=== PATIENT | female | born 2005 | race Caucasian/White ===

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

== ENCOUNTER 2025-01-24 14:33 | Outpatient (CLI) | payer OTHER, SELFPAY ==
--- OUTSIDE RECORDS SUMMARY | 2025-01-24 14:39 | XMS_ITS | Clinical Summary ---
Author Organization [facility] Address [address] [place] [address] Care Team Providers Care Costume Shop Manager Name Role Phone Trevon Hazel MD Primary Care Provider [phone] Allergies No known active allergies Medications acetaminophen (TYLENOL) 500 MG tabletIndicatio ns:Acute Pain < 7 Day Supply Take 2 tablets (1,000 mg total) by mouth every 6 (six) hours as needed for Pain. Indications: Acute Pain < 7 Day Supply 40 tablet 10/18/2024 Active ibuprofen (MOTRIN) 200 MG tablet Take 1 tablet (200 mg total) by mouth every 6 (six) hours as needed for Pain. Active enoxaparin (LOVENOX) 60 MG/0.6ML Solution Prefilled Syringe Inject 0.6 mLs (60 mg total) into the skin every 12 (twelve) hours. 108 mL 11/22/2024 Active Active Problems Problem Noted Date Diagnosed Date Deep vein thrombosis ([facility]) DVT (deep venous thrombosis) ([facility]) 0 11/21/2024 ([facility]) 10/13/2024 Encounters Date Type Department Care Team Description 01/03/2025 1:35 PM CDT - 01/03/2025 11:59 PM CDT Hospital Encounter [facility] [address] [place] [address] Desi Aguirre MD Discharge Disposition: Home or Self Care (Routine Discharge) 01/03/2025 Travel 11/26/2024 Hospital Follow-up Call [facility] [address] [place] [address] Ara Patricio RN 11/21/2024 3:12 PM CDT - 11/24/2024 3:45 PM CDT Hospital Encounter [facility] [address] [place] [address] Brigid Gonzales MD Maharjan, Sajana, MD Mahmoud, Anas, MD (DVT) Discharge Disposition: Home or Self Care (Routine Discharge) 11/21/2024 Travel from Last 3 Months Social History Tobacco Use Types Packs/Day Years Used Date Smoking Tobacco: Never Smokeless Tobacco: Never Tobacco Cessation:Counseling Given: Not Answered B1300 Health Literacy Answer Date Recor ded How often do you need to hav e someone help you when you read instructions, pamphlets, or other written material from your doctor or pharmacy? Never 10/13/2024 Personally Utilities Answer Date Recorded In the past 12 months has e [employer], gas, oil, or water [employer] threatened to shut off services in your [...] often do you attend chur ch or presybeterian services? Never 10/13/2024 Do you belong to any clubs o r organizations such as episcopal groups, unions, fraternal or athletic groups, or [...] care, and heating? Not very hard 10/13/2024 [facility] - [...] any time in the past 12 m [facility], were you homeless or living in a jail (including now)? No 10/13/2024 Depression Answer Date [...] 11/22/2024 11:32 PM CDT Plan of Treatment Upcoming Encounters Date Type Department Care Team (Late st Contact Info) Description 07/04/2025 1:00 PM ELECTRICAL LINE MECHANIC Appointment [facility] [place] [address] [place] [address] Desi Aguirre MD [address] [place] [address] Health Maintenance Due Date Last Done Comments Annual Physical 2008 Meningococcal B Vaccine (1 of 2 - Standard) 2021 Chlamydia Screening Females ages 16-24 07/17/2024 07/18/2023 COVID-19 Vaccine ( - 2023- season) 2025 DTaP, Tdap and Td Vaccines (7 - [...] Procedure Name Priority Date/Time Associated Diagnosis Comments USV AORTA ILIAC IVC DUPLEX COMP Routine 01/03/2025 2:24 PM CDT Phlebitis of left iliac vein (CMS/HCC HHS/HCC) FOLIC ACID SERUM Routine 11/24/2024 6:02 AM [...] EXT LT STAT 11/21/2024 4:33 PM CDT HEPATITIS C ANTIBODY Routine 03/21/2024 from Last 3 Months or Most Recently Relevant to Health Maintenance Results * USV AORTA ILIAC IVC DUPLEX COMP (01/03/2025 2:24 PM CDT) Anatomical Region Laterality Modality NA Ultrasound 01/03/2025 2:04 PM CDT Narrative 01/08/2025 2:29 PM CDT [facility] PVI DUPLEX SCAN-IVC & ILIAC VEINS Pat.Name: MEENAKSHI POLANCO Pat.ID: [id number] .Date: 01/03/2025 Refer.MD: DESI AGUIRRE Exam Time: 2:04:00 PM Study Type:PVI DUPLEX SCAN-IVC & ILIAC VEINS Age: 12 2005,19Y Sex: F Sonogrphr: MARILEE Sosa Pat. Stat.:Outpatient ICD - 9: I82.499 Acute embolism & thrombosis (DVT) of other specified deep vein of unspecified lower extremity CPT - 4: 46986 Aorta/IVC Duplex Reason for Study:DVT Race: W ++++++++++++++++++++++++++++++++++++ FINDINGS: ++++++++++++++++++++++++++++++++++++ Internal VC: The IVC demonstrates phasic flow with no evidence of venous thrombosis. Rt Iliac V: The iliac veins are patent with no evidence of venous thrombosis noted. Lt Iliac V: Total occlusion of the proximal to distal external iliac vein suggesting age indeterminate venous thrombosis. Partial occlusion of the common femoral vein suggesting age indeterminate venous thrombosis. <Electronic Signature> 01/08/2025 02:29 PM Yusef Griffith M.D. Procedure Note Yusef Griffith MD - 01/08/2025 [facility] PVI DUPLEX SCAN-IVC & ILIAC VEINS Pat.Name: MEENAKSHI POLANCO Pat.ID: [id number] .Date: 01/03/2025 Refer.MD: DESI AGUIRRE Exam Time: 2:04:00 PM Study Type:PVI DUPLEX SCAN-IVC & ILIAC VEINS Age: 12 2005,19Y Sex: F Sonogrphr: MARILEE Sosa Pat. Stat.:Outpatient ICD - 9: I82.499 Acute embolism & thrombosis (DVT) of other specified deep vein of unspecified lower extremity CPT - 4: 10732 Aorta/IVC Duplex Reason for Study:DVT Race: W ++++++++++++++++++++++++++++++++++++ FINDINGS: ++++++++++++++++++++++++++++++++++++ Internal VC: The IVC demonstrates phasic flow with no evidence of venous thrombosis. Rt Iliac V: The iliac veins are patent with no evidence of venous thrombosis noted. Lt Iliac V: Total occlusion of the proximal to distal external iliac vein suggesting age indeterminate venous thrombosis. Partial occlusion of the common femoral vein suggesting age indeterminate venous thrombosis. <Electronic Signature> 01/08/2025 02:29 PM Yusef Griffith M.D. Desi Aguirre MD [facility] Final Result * HEPARIN, ANTI XA, UFH (11/24/2024 6:02 AM CDT) Only the most recent of4 resultswithin the time period is included. HEPARIN ANTI XA UFH 0.31 0.30 - 0.70 IU/ML 11/24/2024 6:[address] [facility] Comment: UFH Therapeutic Anti Xa Ranges: Medical Therapeutic Range: 0.30 - 0.70 IU/mL Cardiac Therapeutic Range: 0.30 - 0.50 IU/mL Neuro Therapeutic Range: 0.20 - 0.40 IU/mL 11/24/2024 6:02 AM CDT Radha Ryan MD LABORATORY Final Result Performing Organization Address [facility] [place]/[facility] de Phone Number [facility] [address] [place] [address], [phone] * PROTIME/INR, VENOUS (11/24/2024 6:02 AM CDT) Only the most recent of3 resultswithin the time period is included. PROTIME 11.6 9.4 - 12.5 SEC 11/24/2024 6:[address] [facility] INR 1.0 0.8 - 1.1 11/24/2024 6:[address] [facility] 11/24/2024 6:02 AM CDT Giana Miner MD LABORATORY Final Result Performing Organization Address [facility] de Phone Number [facility] [address] [place] [address], [phone] * (ABNORMAL) BASIC METABOLIC PANEL (11/24/2024 6:02 AM CDT) Only the most recent of3 resultswithin the time period is included. SODIUM S/P/B 140 136 - 145 MMOL/L 11/24/2024 6:[address] [facility] POTASSIUM S/P/B 3.9 3.5 - 5.1 MMOL/L 11/24/2024 6:[address] [facility] CHLORIDE S/P/B 109 97 - 115 MMOL/L 11/24/2024 6:[address] [facility] CO2 25.4 21.0 - 32.0 MMOL/L 11/24/2024 6:[address] [facility] GLUCOSE 108(H) 74 - 106 MG/DL 11/24/2024 6:[address] [facility] BUN 12 7 - 18 MG/DL 11/24/2024 6:[address] [facility] CREATININE S/P/B 0.53(L) 0.55 - 1.02 MG/DL 11/24/2024 6:[address] [facility] CALCIUM S/P/B 8.7 8.5 - 10.1 MG/DL 11/24/2024 6:[address] [facility] ANION GAP 5.6 2.0 - 10.0 MMOL/L 11/24/2024 6:[address] [facility] OSMOLALITY (CALC) 290 MOSM/KG 025 6:[address] [facility] Comment:REFERENCE RANGE NOT ESTABLISHED GFR ESTIMATE >90 >90 ML/MIN/1. 73 M2 11/24/2024 6:[address] [facility] GFR NOTES GFR REFERENCE S: 11/24/2024 6:[address] [facility] Comment: THE ESTIMATED GFR IS [...] LABORATORY Final Resul t Performing Organization Address City/[facility]/ZIP Co de Phone Number [facility] [address] [place] [address], [phone] * FOLIC ACID SERUM (11/24/2024 6:02 AM CDT) FOLATE 14.9 3.1 - 17.5 NG/ML 11/24/2024 6:[address] [facility] 11/24/2024 6:02 AM CDT Radha Ryan MD LABORATORY Final Result Performing Organization Address [facility] [place]/[facility] de Phone Number [facility] [address] [place] [address], [phone] * (ABNORMAL) CBC W/DIFF AUTOMATED (11/24/2024 6:02 AM CDT) Only the most recent of4 resultswithin the time period is included. WBC 6.43 4.00 - 10.80 x10'3/uL 11/24/2024 6:[address] [facility] RBC 3.60(L) 4.10 - 5.40 x10'6/uL 11/24/2024 6:[address] [facility] HGB 8.9(L) 12.0 - 16.0 G/DL 11/24/2024 6:[address] [facility] HCT 28.6(L) 36.0 - 47.0 % 11/24/2024 6:[address] [facility] MCV 79.4 78.0 - 100.0 FL 11/24/2024 6:[address] [facility] MCH 24.7(L) 27.0 - 31.0 PG 11/24/2024 6:[address] [facility] MCHC 31.1(L) 33.0 - 36.0 G/DL 11/24/2024 6:[address] [facility] RDW 16.0(H) 11.5 - 14.5 % 11/24/2024 6:[address] [facility] PLT 214 150 - 350 x10'3/uL 11/24/2024 6:[address] [facility] MPV 9.1 7.4 - 10.4 FL 11/24/2024 6:[address] [facility] DIFFERENTIAL TYPE AUTOMATED DIFFERENTIAL 11/24/2024 6:[address] [facility] SEG NEUTROPHILS 55.1 % 6:[address] [facility] LYMPHOCYTES 30.6 % 11/24/2024 6:[address] [facility] MONOCYTES 8.7 % 11/24/2024 6:[address] [facility] EOSINOPHILS 5.0 % 11/24/2024 6:[address] [facility] BASOPHILS 0.3 % 11/24/2024 6:[address] [facility] IMMATURE GRANS % 0.3 % 11/25/19 6:[address] [facility] ABS. NEUTROPHILS 3.54 1.60 - 8.30 x10'3/uL 11/24/2024 6:[address] [facility] ABS. LYMPHOCYTES 1.97 0.80 - 4.70 x10'3/uL 11/24/2024 6:[address] [facility] ABS. MONOCYTES 0.56 0.00 - 1.50 x10'3/uL 11/24/2024 6:[address] [facility] ABS. EOSINOPHILS 0.32 0.00 - 0.40 x10'3/uL 11/24/2024 6:[address] [facility] ABS. BASOPHILS 0.02 0.00 - 0.20 x10'3/uL 11/24/2024 6:[address] [facility] ABS. IMMATURE GRANULOCYTES 0.02 0.00 - 0.03 x10'3/uL 11/24/2024 6:[address] [facility] ABS. NUCLEATED RBC'S 0.00 0.00 - 0.01 x10'3/uL 11/24/2024 6:[address] [facility] NRBC % 0.0 % 11/24/2024 6:[address] [facility] 11/24/2024 6:02 AM CDT us Giana Miner MD LABORATORY Final Result Performing Organization Address [facility] [place]/[facility] Co de Phone Number [facility] [address] [place] [address], [phone] * (ABNORMAL) IRON SATURATION PANEL (FE,IBC,%SAT) (11/23/2024 6:21 PM CDT) IRON 15(L) 50 - 170 MCG/DL 11/23/2024 6:[address] [facility] IRON BINDING CAPACITY 269 250 - 450 MCG/DL 11/23/2024 6:[address] [facility] IRON SATURATION 6 % 6:[address] [facility] Comment:REFERENCE RANGE NOT ESTABLISHED 11/23/2024 6:21 PM CDT us Radha Ryan MD LABORATORY Final Result Performing Organization Address [facility] [place]/[facility]/ZIP Co de Phone Number [facility] [address] [place] [address], [place] [phone] * VITAMIN B-12 (11/23/2024 6:21 PM CDT) VITAMIN B12 S/P/B 561 193 - 986 PG/ML 11/23/2024 7:[address] [facility] 11/23/2024 6:21 PM CDT Radha Ryan MD LABORATORY Final Result Performing Organization Address [facility] [place]/[facility] Co de Phone Number [facility] [address] [place] [address], [phone] * FERRITIN (11/23/2024 6:21 PM CDT) Pathologist [facility] FERRITIN 66.5 8.0 - 252.0 NG/ML 11/23/2024 6:[address] [facility] 11/23/2024 6:21 PM CDT Radha Ryan MD LABORATORY Final Result Performing Organization Address [facility] [place]/[facility] Co de Phone Number [facility] [address] [place] [address], [phone] * TEST URINE (11/23/2024 4:22 AM CDT) [facility] URINE HCG TEST NEGATIVE 11/23/2024 4:[address] [facility] URINE SPECIMEN FROM URETHRA / Unknown 11/23/2024 4:22 AM CDT Gabbie German MD URINE ORDERABLES Final Result Performing Organization Address [facility] [place]/[facility] Co de Phone Number [facility] [address] [place] [address], [phone] * PROTHROMBIN GENE MUTATION (11/22/2024 6:15 PM CDT) PROTHROMBIN GENE MUTATION NEGATIVE 11/30/2024 1:47 PM CDT [facility] Comment: RESULT: [id number] VARIANT NOT DETECTED INTERPRETATION REPORT 11/30/2024 1:47 PM CDT [facility] Comment: INTERPRETATION: This individual is negative (normal) for the [id number] variant in the Prothrombin/Factor II gene. Increased risk of thrombophilia can be caused by a variety of genetic and non-genetic factors not screened for by this assay. Laboratory testing supervised and results monitored by Placido Robins, Ph.D., [facility], [facility], [facility]. The [id number] mutation [[id number]: g.97701F>A (c.*97G>A)] in the Prothrombin/Factor II gene is the second most common inherited risk factor for thrombosis occurring in approximately 2% of Caucasians. Presence of the mutation is associated with an elevation of prothrombin levels to about 30% above normal in heterozygotes and to 70% above normal in homozygotes. Prothrombin (I56573Q) mutations are detected by amplification of their [...] Health care providers, please contact your local [facility]' genetic counselor or call [phone] ([phone]) for assistance with interpretation of these results. This test was developed and its analytical performance characteristics have been determined by [facility]. It has not been cleared or approved by the FDA. This assay has been validated pursuant to the CLIA regulations and is used for clinical purposes. Test performed by [facility] [place] [address] [place] [address] Process Supervisor: Gricelda Kumar MD,PHD,INA Test Reported by Carlene Gamble [facility], [address] [facility], [place], [place] Kwadwo Gao M.D., Ph.D., Director of Laboratories , CLIA [id number] 11/22/2024 6:15 PM CDT Gabbie German MD LABORATORY Final Result [facility] [address] [place] [address], * FACTOR V LEIDEN MUTATION (11/22/2024 6:15 PM CDT) [facility] Signature FACTOR V LEIDEN NEGATIVE 8:01 PM CDT [facility] BARILLASEloiseNAVNEET RAYGOZA Comment: FACTOR V LEIDEN (R506Q) VARIANT NOT DETECTED INTERPRETATION REPORT 11/30/2024 8:01 PM CDT [facility] TINGNAVNE[facility] RAYGOZA Comment: INTERPRETATION: This individual is negative (normal) for the Factor V Leiden (R506Q) variant in the Factor V gene. Increased risk of thrombophilia can be caused by a variety of genetic and non-genetic factors not screened for by this assay. Laboratory testing supervised and results monitored by Placido Robins, Ph.D., [facility], [facility], [facility]. VARIANT ANALYSIS: The Factor V Leiden [...] Health care providers, please contact your local [facility] genetic counselor or call [employer] ([phone]) for assistance with interpretation of these results. This test was developed and its analytical performance characteristics have been determined by [facility]. It has not been cleared or approved by the FDA. This assay has been validated pursuant to the CLIA regulations and is used for clinical purposes. Test performed by [facility] [place] [address] [place] [address] Process Supervisor: Gricelda Kumar MD,PHD,INA Test Reported by [employer], [facility] [place], [address] [place] [address] Kwadwo Gao M.D., Ph.D., Director of Laboratories , CLIA [id number] 11/22/2024 6:15 PM CDT Gabbie German MD LABORATORY Final Result [facility] [address] , [place] [phone] * PARTIAL THROMBOPLASTIN TIME,PTT (11/22/2024 6:15 PM CDT) Pathologist [facility] PTT 32.1 25.1 - 36.5 SEC 11/22/2024 7:[address] [facility] 11/22/2024 6:15 PM CDT Gabbie German MD LABORATORY Final Result [facility] [address] [place] [address], [place] [phone] * PROTEIN C, ACTIVITY (11/22/2024 6:15 PM CDT) PROTEIN C FUNCTIONAL 97 70 - 180 % normal 11/26/2024 9:08 PM CDT [facility] SRINIVASA WARD Comment: Test Performed by Carlene Gamble, [facility] [place], [address] [place] [address] Kwadwo Gao M.D., Ph.D., Director of Laboratories , CLIA [id number] 11/22/2024 6:15 PM CDT Gabbie German MD LABORATORY Final Result [address] [address] [place] [address], [place] [phone] * CTV LOW EXT MICKY (11/22/2024 12:43 [...] 2:00 PM Narrative 11/22/2024 2:07 PM CDT [address] [address] Examination: CTV LOW EXT MICKY Clinical Information: [...] Procedure Note Raul Patricia MD - 11/22/[address] [address] Examination: CTV LOW EXT MICKY Clinical Information: [...] 11/22/2024 12:47 PM CDT Vascular Report Pat.Name: MEENAKSHI POLANCO Pat.ID: [id number] .Date: 11/22/2024 Refer.MD: MOUSTAPHA KUMAR Exam Time: 10:11:00 AM Study Type:PVI VENOUS DUPLEX SCAN-LEFT LEG Age: 12 2005,19Y Sex: F Sonogrphr: Roxana Calabrese. Stat.:Inpatient Room: W314 ICD - 9: I82.402 Acute embolism & thrombosis (DVT) of LLE CPT - 4: 61717 Venous Duplex LE/UE Reason for Study:DVT Race: [...] 11/22/2024 Vascular Report Pat.Name: MEENAKSHI POLANCO Pat.ID: [id number] .Date: 11/22/2024 Refer.MD: MOUSTAPHA KUMAR Exam Time: 10:11:00 AM Study Type:PVI VENOUS DUPLEX SCAN-LEFT LEG Age: 12 2005,19Y Sex: F Sonogrphr: Best Brooke RVTPat. Stat.:Inpatient Room: W314 ICD - 9: I82.402 Acute embolism & thrombosis (DVT) of LLE CPT - 4: 11359 Venous Duplex LE/UE Reason for Study:DVT Race: [...] PM Syeda Collado M.D. Moustapha Kumar MD [facility] Final Resul t * PRO-BRAIN NATRIURETIC PEPTIDE (PRO BNP) (11/21/2024 5:12 PM CDT) Pathologist [facility] PRO-B TYPE NATRIURETIC PEPTIDE 47 <125 PG/ML 11/21/2024 5:[address] [facility] Comment: AGE INDEPENDENT: <300 PG/ML [...] CDT Ananya Rangel MD LABORATORY Final Result [facility] [address] [place] [address], [phone] * TYPE & SCREEN (11/21/2024 5:10 PM CDT) Pathologist [facility] ABO/RH O POSITIVE 11/21/2024 6:[address] [facility] ANTIBODY SCREEN NEGATIVE 11/21/2024 6:[address] [facility] SAMPLE EXPIRATION 11/24/2024,2 359 11/21/2024 5:[address] [facility] 11/21/2024 5:10 PM CDT Brigid Ireland MD BLOOD BANK TEST ORDERA BLES Final Result [facility] [address] [place] [address], [phone] * US JORGE DUPLEX LOW EXT LT (11/21/2024 4:33 PM CDT) Anatomical Region Laterality Modality NA Ultrasound 11/21/2024 4:52 PM CDT Impressions 11/21/2024 4:56 PM CDT IMPRESSION: Extensive deep venous thrombosis involving the left common femoral vein to the level of the popliteal vein. Ordered By: BRIGID IRELAND Interpreted By: Mayuri Nathan MD, 11/21/2024 4:52 PM Narrative 11/21/2024 4:[address] [address] LEFT LOWER EXTREMITY VENOUS DOPPLER STUDY Indication: [...] compressible with normal flow augmentation. Procedure Note Mayrui Nathan MD - 11/21/[address] [address] LEFT LOWER EXTREMITY VENOUS DOPPLER STUDY Indication: [...] By: Mayuri Nathan MD, 11/21/2024 4:52 PM us Brigid Ireland MD ULTRASOUND Final Result * HEPATITIS C ANTIBODY (03/21/2024) HEPATITIS C AB non-reacti ve us Default History Genericprovider LABORATORY Final Result from Last 3 Months or Most Recently Relevant to Health Maintenance Insurance [employer] Advance Directives * Full Code (Latest Code [...] 9:41 PM 09/27/2024 1:01 AM Care Teams Costume Shop Manager Relationship Specialty Start Date End Date Trevon Hazel MD [address] [place] [address] PCP - General FAMILY PRACTICE 06/12/24
--- OUTSIDE RECORDS SUMMARY | 2025-01-24 14:39 | XMS_ITS | Encounter Summary ---
Author Organization [facility] Address [facility] [place] [address] Care Team Providers Care Dog Hair Clipper Name Role Phone Trevon Hazel MD Primary Care Provider [phone] Encounter Details Date Type Department Care Team (Late st Contact Info) Description 11/26/2024 Hospital Follow-up Call [facility] Cardiovascular Care Unit [address] [place] [address] Ara Patricio, RN Social History Tobacco Use Types Packs/Day Years Used Date Smoking Tobacco: Never Smokeless Tobacco: Never B1300 Health Literacy Answer Date Recor ded How often do you need to hav e someone help you when you read instructions, pamphlets, or other written material from your doctor or pharmacy? Never 10/13/2024 [facility] Utilities Answer Date Recorded In the past 12 months has [facility] electric, gas, oil, or water company threatened [...] often do you attend chur ch or sikh services? Never 10/13/2024 Do you belong to any clubs o r organizations such as taoism groups, unions, fraternal or athletic groups, or [...] care, and heating? Not very hard 10/13/2024 [facility] - Occupational [...] any time in the past 12 m [facility], were you homeless or living in a longterm (including now)? No 10/13/2024 Depression Answer Date [...] documented in this encounter Plan of Treatment Upcoming Encounters Date Type Department Care Team (Late st Contact Info) Description 07/04/2025 1:00 PM ADOBE LAYER Appointment [facility] Vascular [facility] [address], [place] [address] Desi Aguirre MD [address] [place] [address] documented as of this encounter Visit Diagnoses Not on filedocumented in this encounter Care Teams Dog Hair Clipper Relationship Specialty Start Date End Date Trevon Hazel MD [address] [place] [address] PCP - General FAMILY PRACTICE 06/12/24 documented as of this encounter
[2025-01-24 14:58] LABS: Hematocrit 37.9 % (35.0-49.0); Hemoglobin 11.7 g/dL (12.0-15.0); Immature Granulocyte Percent A 0.2 % (0.0-0.0); Lymphocytes Absolute Auto 1.93 K/mm3 (1.10-4.50); Mean Corpuscular HGB Conc 30.9 g/dL (32-36); Mean Corpuscular Hemoglobin 24.4 pg (27.0-31.0); Mean Corpuscular Volume 79.0 fL (78.0-102.0); Nucleated Red Blood Cells Absolute Auto 0.00 K/mm3 (0.00-0.00); Nucleated Red Blood Cells Perc 0.0 % (0-0.0); Platelet Count Result 265 K/mm3 (150-420); Red Blood Count 4.80 M/mm3 (4.20-5.40); White Blood Count 4.4 K/mm3 (4.8-10.8)
[2025-01-24 15:35] LABS: Anion Gap 11 mmol/L (4-12); Blood Urea Nitrogen 17 mg/dL (8-21); Calcium 10.4 mg/dL (8.9-10.7); Carbon Dioxide 29 mmol/L (22-30); Chloride 101 mmol/L (98-107); Estimated Glomerular Filt Rate > 60; Glucose 104 mg/dL (65-110); Osmolality Calculated 293 mOsm/kg (285-295); Potassium 4.9 mmol/L (3.4-5.0); Sodium 141 mmol/L (134-143)
== END 2025-01-24 14:34 | disposition home or self-care (01) ==
LOC: CHSLAB 14:36
PROVIDERS: PCP Family Medicine; Visit Provider Family Medicine
DX: I82.422 Acute embolism and thrombosis of left iliac vein (principal)
CPT/HCPCS: 36415; 80048; 85025; 85380

== ENCOUNTER 2025-02-01 14:37 | Outpatient (CLI) | payer OTHER, SELFPAY ==
--- OUTSIDE RECORDS SUMMARY | 2025-02-01 14:41 | XMS_ITS | Encounter Summary ---
Author Organization [facility] Address [facility] [place] [address] Care Team Providers Care Car Framer Name Role Phone Trevon Hazel MD Primary Care Provider [phone] Encounter Details Date Type Department Care Team (Late st Contact Info) Description 11/26/2024 Hospital Follow-up Call [facility] Cardiovascular Care Unit [address] [place] [address] Ara Patricio, RN Social History Tobacco Use Types Packs/Day Years Used Date Smoking Tobacco: Never Smokeless Tobacco: Never B1300 Health Literacy Answer Date Recor ded How often do you need to hav e someone help you when you read instructions, pamphlets, or other written material from your doctor or pharmacy? Never 10/13/2024 [facility] Utilities Answer Date Recorded In the past 12 months has [facility] electric, gas, oil, or water company threatened [...] often do you attend chur ch or islam services? Never 10/13/2024 Do you belong to any clubs o r organizations such as jew groups, unions, fraternal or athletic groups, or [...] care, and heating? Not very hard 10/13/2024 [facility] - Occupational [...] any time in the past 12 m [facility], were you homeless or living in a long term (including now)? 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
--- OUTSIDE RECORDS SUMMARY | 2025-02-01 14:41 | XMS_ITS | Clinical Summary ---
Author Organization [facility] Address [facility] [place] [address] Care Team Providers Care Pickling Operator Name Role Phone Trevon Galvan MD Primary Care Provider [phone] Allergies No known active allergies Medications acetaminophen [...] Noted Date Diagnosed Date Deep vein thrombosis ([facility]) DVT (deep venous thrombosis) ([facility]) 0 11/21/2024 ([facility]) 10/13/2024 Encounters Date Type Department Care Team Description 01/29/2025 9:00 AM CDT - 01/29/2025 11:59 PM CDT Hospital Encounter [facility] [address] [place] [address] Trevon Galvan MD Arrived Discharge Disposition: Home or Self Care (Routine Discharge) 01/29/2025 Travel 01/03/2025 1:35 PM CDT - 01/03/2025 11:59 PM CDT Hospital Encounter [facility] [address] [place] [address] Desi Aguirre MD Discharge Disposition: Home or Self Care (Routine Discharge) 01/03/2025 Travel 11/26/2024 Hospital Follow-up Call [facility] Cardi[facility] Care Unit [address] [place] [address] Ara Patricio RN 11/21/2024 3:12 PM CDT - 11/24/2024 3:45 PM CDT Hospital Encounter [facility] [address] [place] [address] Brigid Gonzales MD Maharjan, Sajana, MD Mahmoud, [...] from your doctor or pharmacy? Never 10/13/2024 [facility] Utilities Answer Date Recorded In the past 12 months has e [employer], gas, oil, or water [employer] threatened to shut off services in your [...] or neighbors? Three times a week 10/14/19 25 How often do you get togethe r with friends or relatives? Three times a week 10/13/2024 How often do you attend chur ch or taoist services? Never 10/13/2024 Do you belong to any clubs o r organizations such as anabaptism groups, unions, fraternal or athletic groups, or [...] care, and heating? Not very hard 10/13/2024 [facility] ional [facility] - Occupational Stress [...] any time in the past 12 m [facility], were you homeless or living in a correction (including now)? 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 Appointment [facility] [place] [address] [place] [address] Desi Aguirre MD [address] [place] [address] Health Maintenance Due Date Last [...] Name Priority Date/Time Associated Diagnosis Comments USV JORGE DUPLEX LOW EXT MICKY STAT 01/29/2025 10:13 AM CDT Positive D dimer USV AORTA ILIAC IVC DUPLEX COMP Routine [...] Relevant to Health Maintenance Results * USV JORGE DUPLEX LOW EXT MICKY (01/29/2025 10:13 AM CDT) Anatomical Region Laterality Modality Extremity Ultrasound 01/29/2025 10:1 6 AM CDT Narrative 01/29/2025 10:17 AM CDT [address] [place] [address] RIGHT AND LEFT LOWER EXTREMITY VENOUS ULTRASOUND Clinical history: Positive d-dimer. High-resolution grayscale and color Doppler ultrasound was performed over the veins of the left and right lower extremity. The obtained images are reviewed and compared to November 21, 2024. FINDINGS: The obtained images demonstrate normal compressibility, augmentation, and color flow throughout the right lower extremity. However, on the left there is a deep venous thrombosis throughout the femoral vein which begins at the common femoral vein and continues through the distal popliteal vein.. IMPRESSION; Deep venous thrombosis of the left femoral vein Ordered By: TREVON GALVAN Interpreted By: Rex Franklin MD, 01/29/2025 10:16 AM Procedure Note Rex Franklin MD - 01/29/2025 [place] [address] [facility] [place] [address] RIGHT AND LEFT LOWER EXTREMITY VENOUS ULTRASOUND Clinical history: Positive d-dimer. High-resolution grayscale and color Doppler ultrasound was performed overthe veins of the left and right lower extremity. The obtained images arereviewed and compared to November 21, 2024. FINDINGS: The obtained images demonstrate normal compressibility, augmentation, andcolor flow throughout the right lower extremity. However, on the leftthere is a deep venous thrombosis throughout the femoral vein which beginsat the common femoral vein and continues through the distal poplitealvein.. IMPRESSION; Deep venous thrombosis of the left femoral vein Ordered By: TREVON GALVAN Interpreted By: Rex Franklin MD, 01/29/2025 10:16 AM us Trevon Galvan MD VASC Final Result * USV AORTA ILIAC IVC DUPLEX COMP (01/03/2025 2:24 PM CDT) Anatomical Region Laterality Modality NA Ultrasound 01/03/2025 2:04 PM CDT Narrative 01/08/2025 2:29 PM CDT [facility] PVI DUPLEX SCAN-IVC & ILIAC VEINS Pat.Name: MEENAKSHI POLANCO Pat.ID: [id number] .Date: 01/03/2025 Refer.MD: DESI AGUIRRE Exam Time: 2:04:00 PM Study Type:PVI DUPLEX SCAN-IVC & ILIAC VEINS Age: 12 2005,19Y Sex: F Sonogrphr: MARILEE Sosa Pat. Stat.:Outpatient ICD - 9: I82.499 Acute embolism & thrombosis (DVT) of other specified deep vein of unspecified lower extremity CPT - 4: 88125 Aorta/IVC Duplex Reason for Study:DVT Race: W [...] Procedure Note Yusef Griffith MD - 01/08/2025 [facility] PVI DUPLEX SCAN-IVC & ILIAC VEINS Pat.Name: SHERRI MEENAKSHI M Pat.ID: [id number] .Date: 01/03/2025 Refer.MD: DESI AGUIRRE Exam Time: 2:04:00 PM Study Type:PVI DUPLEX SCAN-IVC & ILIAC VEINS Age: 12 2005,19Y Sex: F Sonogrphr: MARILEE Sosa Pat. Stat.:Outpatient ICD - 9: I82.499 Acute embolism & thrombosis (DVT) of other specified deep vein of unspecified lower extremity CPT - 4: 53433 Aorta/IVC Duplex Reason for Study:DVT Race: W [...] PM Yusef Griffith M.D. Desi Aguirre MD VAS Final Result * HEPARIN, ANTI XA, UFH (11/24/2024 6:02 AM CDT) Only the most recent of4 resultswithin the time period is included. HEPARIN ANTI XA UFH 0.31 0.30 - 0.70 IU/ML 11/24/2024 6:40 AM CDT [facility] Comment: UFH Therapeutic Anti Xa Ranges: Medical Therapeutic Range: 0.30 - 0.70 IU/mL Cardiac Therapeutic Range: 0.30 - 0.50 IU/mL Neuro Therapeutic Range: 0.20 - 0.40 IU/mL 11/24/2024 6:02 AM CDT Radha Ryan MD LABORATORY Final Result Performing Organization Address [facility] Co de Phone Number [facility] [address] [place] [address], [phone] * PROTIME/INR, VENOUS (11/24/2024 6:02 AM CDT) Only the most recent of3 resultswithin the time period is included. PROTIME 11.6 9.4 - 12.5 SEC 11/24/2024 6:39 AM CDT [facility] INR 1.0 0.8 - 1.1 11/24/2024 6:39 AM CDT [facility] 11/24/2024 6:02 AM CDT Giana Miner MD LABORATORY Final Result Performing Organization Address City/[facility]/ZIP Co de Phone Number [facility] [address] [place] [address], [id number] * (ABNORMAL) BASIC METABOLIC PANEL (11/24/2024 6:02 AM CDT) Only the most recent of3 resultswithin the time period is included. SODIUM S/P/B 140 136 - 145 MMOL/L 11/24/2024 6:39 AM CDT [facility] POTASSIUM S/P/B 3.9 3.5 - 5.1 MMOL/L 11/24/2024 6:39 AM CDT [facility] CHLORIDE S/P/B 109 97 - 115 MMOL/L 11/24/2024 6:39 AM CDT [facility] CO2 25.4 21.0 - 32.0 MMOL/L 11/24/2024 6:39 AM T [facility] GLUCOSE 108(H) 74 - 106 MG/DL 11/24/2024 6:39 AM T [facility] BUN 12 7 - 18 MG/DL 11/24/2024 6:39 AM T [facility] CREATININE S/P/B 0.53(L) 0.55 - 1.02 MG/DL 11/24/2024 6:39 AM CDT [facility] CALCIUM S/P/B 8.7 8.5 - 10.1 MG/DL 11/24/2024 6:39 AM T [facility] ANION GAP 5.6 2.0 - 10.0 MMOL/L 11/24/2024 6:39 AM T [facility] OSMOLALITY (CALC) 290 MOSM/KG 025 6:39 AM T [facility] Comment:REFERENCE RANGE NOT ESTABLISHED GFR ESTIMATE >90 >90 ML/MIN/1. 73 M2 11/24/2024 6:39 AM T [facility] GFR NOTES GFR REFERENCE S: 11/24/2024 6:39 AM T [facility] Comment: THE ESTIMATED GFR [...] LABORATORY Final Resul t Performing Organization Address [facility]/ZIP Co de Phone Number [facility] [address] [place] [address], [id number] * FOLIC ACID SERUM (11/24/2024 6:02 AM CDT) FOLATE 14.9 3.1 - 17.5 NG/ML 11/24/2024 6:57 AM CDT [facility] 11/24/2024 6:02 AM CDT Radha Ryan MD LABORATORY Final Result Performing Organization Address [facility] Co de Phone Number [facility] [address] [place] [address], [id number] * (ABNORMAL) CBC W/DIFF AUTOMATED (11/24/2024 6:02 AM CDT) Only the most recent of4 resultswithin the time period is included. WBC 6.43 4.00 - 10.80 x10'3/uL 11/24/2024 6:39 AM CDT [facility] RBC 3.60(L) 4.10 - 5.40 x10'6/uL 11/24/2024 6:39 AM CDT [facility] HGB 8.9(L) 12.0 - 16.0 G/DL 11/24/2024 6:39 AM CDT [facility] HCT 28.6(L) 36.0 - 47.0 % 11/24/2024 6:39 AM CDT [facility] MCV 79.4 78.0 - 100.0 FL 11/24/2024 6:39 AM CDT [facility] MCH 24.7(L) 27.0 - 31.0 PG 11/24/2024 6:39 AM CDT [facility] MCHC 31.1(L) 33.0 - 36.0 G/DL 11/24/2024 6:39 AM CDT [facility] RDW 16.0(H) 11.5 - 14.5 % 11/24/2024 6:39 AM CDT [facility] PLT 214 150 - 350 x10'3/uL 11/24/2024 6:39 AM CDT [facility] MPV 9.1 7.4 - 10.4 FL 11/24/2024 6:39 AM CDT [facility] DIFFERENTIAL TYPE AUTOMATED DIFFERENTIAL 11/24/2024 6:39 AM CDT [facility] SEG NEUTROPHILS 55.1 % 6:39 AM CDT [facility] LYMPHOCYTES 30.6 % 11/24/2024 6:39 AM CDT [facility] MONOCYTES 8.7 % 11/24/2024 6:39 AM CDT [facility] EOSINOPHILS 5.0 % 11/24/2024 6:39 AM CDT [facility] BASOPHILS 0.3 % 11/24/2024 6:39 AM CDT [facility] IMMATURE GRANS % 0.3 % 11/25/19 6:39 AM CDT [facility] ABS. NEUTROPHILS 3.54 1.60 - 8.30 x10'3/uL 11/24/2024 6:39 AM CDT [facility] ABS. LYMPHOCYTES 1.97 0.80 - 4.70 x10'3/uL 11/24/2024 6:39 AM CDT [facility] ABS. MONOCYTES 0.56 0.00 - 1.50 x10'3/uL 11/24/2024 6:39 AM CDT [facility] ABS. EOSINOPHILS 0.32 0.00 - 0.40 x10'3/uL 11/24/2024 6:39 AM CDT [facility] ABS. BASOPHILS 0.02 0.00 - 0.20 x10'3/uL 11/24/2024 6:39 AM CDT [facility] ABS. IMMATURE GRANULOCYTES 0.02 0.00 - 0.03 x10'3/uL 11/24/2024 6:39 AM CDT [facility] ABS. NUCLEATED RBC'S 0.00 0.00 - 0.01 x10'3/uL 11/24/2024 6:39 AM CDT [facility] NRBC % 0.0 % 11/24/2024 6:39 AM CDT [facility] 11/24/2024 6:02 AM CDT Giana Miner MD LABORATORY Final Result [facility] [address] [place] [address], [id number] * (ABNORMAL) IRON SATURATION PANEL (FE,IBC,%SAT) (11/23/2024 6:21 PM CDT) IRON 15(L) 50 - 170 MCG/DL 11/23/2024 6:49 PM CDT [facility] IRON BINDING CAPACITY 269 250 - 450 MCG/DL 11/23/2024 6:49 PM CDT [facility] IRON SATURATION 6 % 6:49 PM CDT [facility] Comment:REFERENCE RANGE NOT ESTABLISHED 11/23/2024 6:21 PM CDT Radha Ryan MD LABORATORY Final Result Performing Organization Address City/[facility]/ZIP Co de Phone Number [facility] [address] [place] [address], [place] [phone] * VITAMIN B-12 (11/23/2024 6:21 PM CDT) VITAMIN B12 S/P/B 561 193 - 986 PG/ML 11/23/2024 7:23 PM CDT [facility] 11/23/2024 6:21 PM CDT Radha Ryan MD LABORATORY Final Result Performing Organization Address [facility] Co de Phone Number [facility] [address] [place] [address], [id number] * FERRITIN (11/23/2024 6:21 PM CDT) FERRITIN 66.5 8.0 - 252.0 NG/ML 11/23/2024 6:49 PM CDT [facility] 11/23/2024 6:21 PM CDT Radha Ryan MD LABORATORY Final Result Performing Organization Address City/[facility]/ZIP Co de Phone Number [facility] [address] [place] [address], [place] [phone] * TEST URINE (11/23/2024 4:22 AM CDT) URINE HCG TEST NEGATIVE 11/23/2024 4:38 AM CDT [facility] URINE SPECIMEN FROM URETHRA / Unknown 11/23/2024 4:22 AM CDT Gabbie German MD URINE ORDERABLES Final Result [facility] [address] [place] [address], [id number] * PROTHROMBIN GENE MUTATION (11/22/2024 6:15 PM CDT) PROTHROMBIN GENE MUTATION NEGATIVE 11/30/2024 1:47 PM CDT [facility] Comment: RESULT: [id number] VARIANT NOT DETECTED INTERPRETATION REPORT 11/30/2024 1:47 PM CDT [facility] Comment: INTERPRETATION: This individual is negative (normal) for the [id number] variant in the Prothrombin/Factor II gene. Increased risk of thrombophilia can be caused by a variety of genetic and non-genetic factors not screened for by this assay. Laboratory testing supervised and results monitored by Placido Robins, Ph.D., [facility], [facility], [facility]. The [id number] mutation [[id number]: g.33214E>A (c.*97G>A)] in the Prothrombin/Factor II gene is the second most common inherited risk factor for thrombosis occurring in approximately 2% of Caucasians. Presence of the mutation is associated with an elevation of prothrombin levels to about 30% above normal in heterozygotes and to 70% above normal in homozygotes. Prothrombin ([id number]) mutations are detected by amplification of their [...] Health care providers, please contact your local [employer]' genetic counselor or call [phone] ([phone]) for assistance with interpretation of these results. This test was developed and its analytical performance characteristics have been determined by [facility]. It has not been cleared or approved by the FDA. This assay has been validated pursuant to the CLIA regulations and is used for clinical purposes. Test performed by [facility] [place] [address] [place] [address] Change Management Lead: Gricelda Kumar MD,PHD,INA Test Reported by [facility], [employer] [facility] [place], [address] [place], [place] Kwadwo Gao M.D., Ph.D., Director of Laboratories , [facility] [id number] 11/22/2024 6:15 PM CDT Gabbie German MD LABORATORY Final Result [facility] [address] [place], [place] , * FACTOR V LEIDEN MUTATION (11/22/2024 6:15 PM CDT) FACTOR V LEIDEN NEGATIVE 8:01 PM CDT [facility] Comment: FACTOR V LEIDEN (R506Q) VARIANT NOT DETECTED INTERPRETATION REPORT 11/30/2024 8:01 PM CDT [facility] Comment: INTERPRETATION: This individual is negative (normal) for the Factor V Leiden (R506Q) variant in the Factor V gene. Increased risk of thrombophilia can be caused by a variety of genetic and non-genetic factors not screened for by this assay. Laboratory testing supervised and results monitored by Placido Robins, Ph.D., [facility], [facility], [facility]. VARIANT ANALYSIS: The Factor V Leiden [...] Health care providers, please contact your local [employer] genetic counselor or call [employer] ([phone]) for assistance with interpretation of these results. This test was developed and its analytical performance characteristics have been determined by [facility]. It has not been cleared or approved by the FDA. This assay has been validated pursuant to the CLIA regulations and is used for clinical purposes. Test performed by [employer] [facility] [address] [place] [address] Change Management Lead: Gricelda Kumar MD,PHD,INA Test Reported by [facility], [employer] [facility], [address] [place] [address] Kwadwo Gao M.D., Ph.D., Director of Laboratories , CLIA [id number] 11/22/2024 6:15 PM CDT Gabbie German MD LABORATORY Final Result Performing Organization Address City/[facility]/ZIP Co de Phone Number [facility] [address] , [place] [phone] * PARTIAL THROMBOPLASTIN TIME,PTT (11/22/2024 6:15 PM CDT) PTT 32.1 25.1 - 36.5 SEC 11/22/2024 7:00 PM CDT [facility] 11/22/2024 6:15 PM CDT Gabbie German MD LABORATORY Final Result [facility] [address] [place] [address], [place] [phone] [id number] * PROTEIN C, ACTIVITY (11/22/2024 6:15 PM CDT) PROTEIN C FUNCTIONAL 97 70 - 180 % normal 11/26/2024 9:08 PM CDT [facility] Comment: Test Performed by Carlene Gamble, [employer] [facility], [address] [place], [place] Kwadwo Gao M.D., Ph.D., Director of Laboratories , [place] [id number] 11/22/2024 6:15 PM CDT Gabbie German MD LABORATORY Final Result [facility] [address] [place], [place] , * CTV LOW EXT MICKY (11/22/2024 12:43 [...] 2:00 PM Narrative 11/22/2024 2:07 PM CDT [address] [address] Examination: CTV LOW EXT MICKY Clinical Information: [...] Procedure Note Raul Patricia MD - 11/22/[address] [address] Examination: CTV LOW EXT MICKY Clinical Information: [...] CDT Vascular Report Pat.Name: MEENAKSHI POLANCO Pat.ID: [id number] St.Date: 11/22/2024 Refer.MD: MOUSTAPHA KUMAR Exam Time: 10:11:00 AM Study Type:PVI VENOUS DUPLEX SCAN-LEFT LEG Age: 12 2005,19Y Sex: F Sonogrphr: Davnorma Edwardo Joshua. Stat.:Inpatient Room: W314 ICD - 9: I82.402 Acute embolism & thrombosis (DVT) of LLE CPT - 4: 69264 Venous Duplex LE/UE Reason for Study:DVT Race: [...] Collado MD - 11/22/2024 Vascular Report Pat.Name: SHERRI MEENAKSHI Aaliyah Pat.ID: [id number] .Date: 11/22/2024 Refer.MD: MOUSTAPHA KUMAR Exam Time: 10:11:00 AM Study Type:PVI VENOUS DUPLEX SCAN-LEFT LEG Age: 12 2005,19Y Sex: F Sonogrphr: Davnorma Roxana Brooke. Stat.:Inpatient Room: W314 ICD - 9: I82.402 Acute embolism & thrombosis (DVT) of LLE CPT - 4: 08069 Venous Duplex LE/UE Reason for Study:DVT Race: [...] PM Syeda Collado M.D. Moustapha Kumar MD [facility] Final Resul t * PRO-BRAIN NATRIURETIC PEPTIDE (PRO BNP) (11/21/2024 5:12 PM CDT) [facility] PRO-B TYPE NATRIURETIC PEPTIDE 47 <125 PG/ML 11/21/2024 5:52 PM CDT [facility] Comment: AGE INDEPENDENT: <300 [...] CDT Ananya Rangel MD LABORATORY Final Result [facility] [address] [place] [address], [place] [phone] * TYPE & SCREEN (11/21/2024 5:10 PM CDT) ABO/RH O POSITIVE 11/21/2024 6:06 PM CDT [facility] ANTIBODY SCREEN NEGATIVE 11/21/2024 6:06 PM CDT [facility] SAMPLE EXPIRATION 11/24/2024,2 359 11/21/2024 5:19 PM CDT [facility] 11/21/2024 5:10 PM CDT us Brigid Ireland MD BLOOD BANK TEST ORDERA BLES Final Result [facility] [address] [place] [address], [id number] * US JORGE DUPLEX LOW EXT LT (11/21/2024 4:33 PM CDT) Anatomical Region Laterality Modality NA Ultrasound 11/21/2024 4:52 PM CDT Impressions 11/21/2024 4:56 PM CDT IMPRESSION: Extensive deep venous thrombosis involving the left common femoral vein to the level of the popliteal vein. Ordered By: BRIGID IRELAND Interpreted By: Mayuri Nathan MD, 11/21/2024 4:52 PM Narrative 11/21/2024 4:56 PM CDT [facility] [address] [place], [place] [address] LEFT LOWER EXTREMITY VENOUS DOPPLER STUDY Indication: [...] Procedure Note Mayuri Nathan MD - 11/21/[address] [address] LEFT LOWER EXTREMITY VENOUS DOPPLER STUDY Indication: [...] Most Recently Relevant to Health Maintenance Insurance [facility] Advance Directives * Full Code (Latest Code [...] 9:41 PM 09/27/2024 1:01 AM Care Teams Pickling Operator Relationship Specialty Start Date End Date Trevon Galvan MD [address] [place], [place] [id number] PCP - General FAMILY PRACTICE 06/12/24
[2025-02-01 14:53] LABS: Hematocrit 39.0 % (35.0-49.0); Hemoglobin 12.0 g/dL (12.0-15.0); Mean Corpuscular HGB Conc 30.8 g/dL (32-36); Mean Corpuscular Hemoglobin 24.2 pg (27.0-31.0); Mean Corpuscular Volume 78.6 fL (78.0-102.0); Platelet Count Result 264 K/mm3 (150-420); Red Blood Count 4.96 M/mm3 (4.20-5.40); White Blood Count 4.6 K/mm3 (4.8-10.8)
[2025-02-01 15:10] LABS: Anion Gap 8 mmol/L (4-12); Blood Urea Nitrogen 15 mg/dL (8-21); Calcium 10.4 mg/dL (8.9-10.7); Carbon Dioxide 30 mmol/L (22-30); Chloride 104 mmol/L (98-107); Estimated Glomerular Filt Rate > 60; Glucose 88 mg/dL (65-110); INR 0.9; Osmolality Calculated 293 mOsm/kg (285-295); Partial Thromboplastin Time 32.2 Sec (23.9-30.70); Potassium 4.1 mmol/L (3.4-5.0); Prothrombin Time 10.3 Seconds (9.50-12.1); Sodium 142 mmol/L (134-143)
== END 2025-02-01 14:38 | disposition home or self-care (01) ==
LOC: CHSLAB 14:39
PROVIDERS: PCP Family Medicine; Visit Provider Family Medicine
DX: I82.402 Acute embolism and thrombosis of unspecified deep veins of left lower extremity (principal)
CPT/HCPCS: 36415; 80048; 85027; 85610; 85730